=== PATIENT | female | born 1940 | race Caucasian/White ===

== ENCOUNTER 2016-09-12 15:50 | Inpatient (IN) | payer MEDICARE ==
[2016-09-12 16:31] LABS: ABG CO2 ARTERIAL 19 mmol/L (21-27); ARTERIAL BLD GAS O2 SATURATION 98 % (95-98); ARTERIAL BLOOD GAS PCO2 54 mmHg (32-45); ARTERIAL PO2 146 mmHg (70-100); BICARBONATE 17 mmol/L (21-28); BLOOD GAS BASE EXCESS -13 mM/L (-/+3); PH 7.12 Units (7.35-7.45)
[2016-09-12 17:55] LABS: ABG CO2 ARTERIAL 17 mmol/L (21-27); ARTERIAL BLD GAS O2 SATURATION 99 % (95-98); ARTERIAL BLOOD GAS PCO2 42 mmHg (32-45); ARTERIAL PO2 178 mmHg (70-100); BICARBONATE 16 mmol/L (21-28); BLOOD GAS BASE EXCESS -11 mM/L (-/+3); PH 7.21 Units (7.35-7.45)
[2016-09-12 19:01] LABS: INR 1.8 INR (0.9-1.1); PROTHROMBIN TIME 21.3 SECONDS (9.0-13.6)
[2016-09-12 19:35] LABS: ALB/GLOB RATIO 0.9 (0.8-2.0); ALBUMIN 2.8 g/dl (3.5-5.0); ALKALINE PHOSPHATASE 173 U/L (33-138); ALT/SGPT 68 U/L (12-78); ANION GAP 21 mmol/L (0-20); AST/SGOT 473 U/L (10-40); BILIRUBIN,TOTAL 0.7 mg/dl (0-1.5); BLOOD UREA NITROGEN 26 mg/dl (6-24); CALCIUM 7.5 mg/dl (8.5-10.5); CARBON DIOXIDE-VENOUS 17 mmol/L (22-32); CHLORIDE 105 mmol/l (96-110); CREATININE 0.88 mg/dl (0.50-1.10); GLUCOSE 304 mg/dL (70-110); SODIUM 139 mmol/L (135-145); eGFR VALUE FOR BLACK 73 mL/Min
[2016-09-12 20:35] LABS: ABG CO2 ARTERIAL 16 mmol/L (21-27); ARTERIAL BLD GAS O2 SATURATION 100 % (95-98); BICARBONATE 15 mmol/L (21-28); BLOOD GAS BASE EXCESS -9 mM/L (-/+3)
[2016-09-12 20:37] LABS: ARTERIAL BLOOD GAS PCO2 28 mmHg (32-45); ARTERIAL PO2 197 mmHg (70-100); PH 7.34 Units (7.35-7.45)
[2016-09-13 06:00] LABS: ARTERIAL BLD GAS O2 SATURATION 97 % (95-98); ARTERIAL BLOOD GAS PCO2 36 mmHg (32-45); ARTERIAL PO2 101 mmHg (70-100); PH 7.22 Units (7.35-7.45)
[2016-09-13 06:03] LABS: ABG CO2 ARTERIAL 15 mmol/L (21-27); BICARBONATE 14 mmol/L (21-28); BLOOD GAS BASE EXCESS -13 mM/L (-/+3)
[2016-09-13 08:13] LABS: ABG CO2 ARTERIAL 12 mmol/L (21-27); ARTERIAL BLD GAS O2 SATURATION 100 % (95-98); ARTERIAL BLOOD GAS PCO2 30 mmHg (32-45); ARTERIAL PO2 218 mmHg (70-100); BICARBONATE 13 mmol/L (21-28); BLOOD GAS BASE EXCESS -13 mM/L (-/+3); PH 7.25 Units (7.35-7.45)
[2016-09-13 09:11] LABS: ABG CO2 ARTERIAL 12 mmol/L (21-27); ARTERIAL BLD GAS O2 SATURATION 100 % (95-98); ARTERIAL BLOOD GAS PCO2 26 mmHg (32-45); BICARBONATE 12 mmol/L (21-28); BLOOD GAS BASE EXCESS -14 mM/L (-/+3); PH 7.28 Units (7.35-7.45)
[2016-09-13 09:12] LABS: ARTERIAL PO2 247 mmHg (70-100)
[2016-09-13 09:26] LABS: BLOOD GAS BASE EXCESS -16 mM/L (-/+3)
[2016-09-13 09:27] LABS: ABG CO2 ARTERIAL 20 mmol/L (21-27); ARTERIAL BLD GAS O2 SATURATION 70 % (95-98); ARTERIAL PO2 51 mmHg (70-100); BICARBONATE 18 mmol/L (21-28)
[2016-09-13 09:29] LABS: ARTERIAL BLOOD GAS PCO2 82 mmHg (32-45); PH 6.96 Units (7.35-7.45)
== END 2016-09-13 09:15 | disposition expired | DRG 296 ==
LOC: CCU 15:50
PROVIDERS: Family Medicine; Internal Medicine Critical Care Medicine; ADMIT Family Medicine
PROC: 02HV33Z Insertion of Infusion Device into Superior Vena Cava, Percutaneous Approach (ICD-10-PCS; principal; 2016-09-12)
PROC: 5A1935Z Respiratory Ventilation, Less than 24 Consecutive Hours (ICD-10-PCS; 2016-09-12)
PROC: 0BH17EZ Insertion of Endotracheal Airway into Trachea, Via Natural or Artificial Opening (ICD-10-PCS; 2016-09-12)
DX: I46.9 Cardiac arrest, cause unspecified (principal); J96.02 Acute respiratory failure with hypercapnia; J96.01 Acute respiratory failure with hypoxia; J93.9 Pneumothorax, unspecified; E66.01 Morbid (severe) obesity due to excess calories; Z88.1 Allergy status to other antibiotic agents; Z88.8 Allergy status to other drugs, medicaments and biological substances; E03.9 Hypothyroidism, unspecified; M19.90 Unspecified osteoarthritis, unspecified site; G31.84 Mild cognitive impairment of uncertain or unknown etiology; Z86.718 Personal history of other venous thrombosis and embolism; Z79.01 Long term (current) use of anticoagulants; F29 Unspecified psychosis not due to a substance or known physiological condition; N39.3 Stress incontinence (female) (male); Z66 Do not resuscitate; Z51.5 Encounter for palliative care
CPT/HCPCS: C1729; C1751; J0171; J2760; J7040; P9045